=== PATIENT | male | born 1940 | race Caucasian/White ===

== ENCOUNTER → 2019-01-07 | Outpatient (CLI) | payer OTHER | END | disposition home or self-care (01) | LOC: SHCH 14:17 | PROVIDERS: ATTEND Internal Medicine Cardiovascular Disease | DX: I65.23 Occlusion and stenosis of bilateral carotid arteries (principal); I25.10 Atherosclerotic heart disease of native coronary artery without angina pectoris | CPT/HCPCS: 93880 ==

== ENCOUNTER 2019-04-12 19:44 | Inpatient (IN) | payer OTHER ==
[~2019-04-12] VITALS: Ht 170.2 cm; Wt 76.2 kg
[2019-04-12] MEDS ORDERED: SODIUM CHLORIDE 0.9% 1000ML 1,000 ML IV ONE (20:27)
[2019-04-12 20:30] LABS: BASOPHILS % (AUTO) 0.9 % (0.0-5.0); EOSINOPHILS % (AUTO) 1.7 % (0.0-8.0); LYMPHOCYTES % (AUTO) 18.5 % (21.0-51.0); MEAN CORPUSCULAR HEMOGLOBIN 31.2 pg (27.0-33.0); MEAN CORPUSCULAR HGB CONC 33.1 g/dL (32.0-36.0); MEAN CORPUSCULAR VOLUME 94.2 fL (79-99); MONOCYTES % (AUTO) 8.1 % (3.0-13.0); NEUTROPHILS % (AUTO) 70.8 % (40.0-77.0); PLATELET COUNT (AUTO) 249 K/uL (130-400); RED BLOOD CELL COUNT(AUTO) 2.87 MIL/uL (4.50-6.20); RED CELL DISTRIBUTION WIDTH 13.7 % (11.0-15.5); WHITE BLOOD COUNT (AUTO) 10.5 K/uL (4.8-10.8)
[2019-04-12 20:39] LABS: INR 1.06 (0.85-1.15); PARTIAL THROMBOPLASTIN TIME 27.8 SEC (26.3-35.5); PROTHROMBIN TIME 11.1 SEC (9.6-11.6)
[2019-04-12 20:40] LABS: CREATININE 1.6 mg/dL (0.5-1.5); POTASSIUM 4.4 mmol/L (3.5-5.1)
[2019-04-12] MEDS ORDERED: SODIUM CHLORIDE 0.9% 1000ML 1,000 ML IV SCH (22:20)
[2019-04-12] MEDS ORDERED: NITROGLYCERIN 0.4 MG SL TAB SL PRN (22:30)
[2019-04-12] MEDS ORDERED: ACETAMINOPHEN 325 MG TAB PO PRN ×2 (22:30)
[2019-04-12] MEDS ORDERED: ONDANSETRON HCL 4 MG/2 ML VIAL IV PRN (22:30)
[2019-04-12 22:32] LABS: APPEARANCE,URINE Clear (CLEAR); BILIRUBIN,URINE Negative (NEGATIVE); COLOR,URINE Yellow (YELLOW); GLUCOSE, URINE (UA) Negative (NEGATIVE); KETONES,URINE Negative (NEGATIVE); LEUKOCYTE ESTERASE ,URINE Negative (NEGATIVE); NITRATE,URINE Negative (NEGATIVE); OCCULT BLOOD,URINE Negative (NEGATIVE); PH,URINE 6.5 (5.0-8.0); PROTEIN,URINE Negative (NEGATIVE); UROBILINOGEN,URINE 0.2 mg/dL (0.2-1.0)
[2019-04-13] VITALS (7 sets, daily range): BP systolic 89–132; BP diastolic 38–60
[2019-04-13] MEDS ORDERED: SODIUM CHLORIDE 0.9% 1000ML 1,000 ML IV ONE (03:51)
[2019-04-13 04:17] LABS: HEMATOCRIT 23.1 % (42-54); MEAN CORPUSCULAR HEMOGLOBIN 32.2 pg (27.0-33.0); MEAN CORPUSCULAR HGB CONC 34.4 g/dL (32.0-36.0); MEAN CORPUSCULAR VOLUME 93.7 fL (79-99); PLATELET COUNT (AUTO) 217 K/uL (130-400); RED BLOOD CELL COUNT(AUTO) 2.46 MIL/uL (4.50-6.20); RED CELL DISTRIBUTION WIDTH 13.4 % (11.0-15.5); WHITE BLOOD COUNT (AUTO) 9.1 K/uL (4.8-10.8)
[2019-04-13 04:26] LABS: CARBON DIOXIDE 22 mmol/L (21-32); CHLORIDE 109 mmol/L (101-111); CREATININE 1.3 mg/dL (0.5-1.5); GLOMERULAR FILTR. RATE CALC 56 mL/min (>60); GLUCOSE,RANDOM 117 mg/dL (70-105); POTASSIUM 4.1 mmol/L (3.5-5.1); SODIUM SERUM 142 mmol/L (136-145); UREA NITROGEN, BLOOD 74 mg/dL (7-18)
[2019-04-13 04:36] LABS: ALANINE AMINOTRANSFERASE 16 U/L (12-78); ALBUMIN 3.3 g/dL (3.5-5.0); ASPARTATE AMINOTRANSFERASE 16 U/L (10-37); BASOPHILS % (MANUAL) 2 % (0-2); BILIRUBIN,TOTAL 0.3 mg/dL (0.2-1.0); CREATINE KINASE, TOTAL 51 U/L (21-232); LYMPHOCYTES % (MANUAL) 16 % (22-44); MAN.DIFF COMMENT-IMPRESSION MANUAL DIFFERENTIAL; MONOCYTES % (MANUAL) 8 % (2-9); MYOGLOBIN 59 ng/mL (10-92); PLATELET MORPHOLOGY COMMENT ADEQUATE; SEGMENTED NEUTROPHILS % 74 % (40-70); TOTAL PROTEIN, SERUM 6.1 g/dL (6.0-8.3); TROPONIN I < 0.04 ng/mL (0.00-0.06)
[2019-04-13] MEDS ORDERED: ACETAMINOPHEN 325 MG TAB ONE (06:36)
[2019-04-13] MEDS ORDERED: FAMOTIDINE 20MG TAB 20 MG TAB PO SCH (09:00)
[2019-04-13] MEDS ORDERED: FAMOTIDINE 20MG TAB 20 MG TAB ONE (10:10)
[2019-04-13] MEDS ORDERED: ERYTHROMYCIN LACTOBIONATE 250 MG in SODIUM CHLORIDE 0.9% 100 ML IV SCH (11:00)
[2019-04-13 12:24] LABS: HEMATOCRIT 19.9 % (42-54)
[2019-04-13 12:48] LABS: CREATINE KINASE, TOTAL 42 U/L (21-232); MYOGLOBIN 100 ng/mL (10-92); TROPONIN I < 0.04 ng/mL (0.00-0.06)
[2019-04-13] MEDS ORDERED: PROPOFOL 10 MG/ML 20ML VIAL IV ONE (12:55)
[2019-04-13] MEDS ORDERED: EPHEDRINE SULFATE 50 MG/ML AMPULE ONE (13:08)
[2019-04-13] MEDS ORDERED: SODIUM CHLORIDE 0.9% 250 ML IV ONE (15:50)
--- NOTE | 2019-04-13 19:26 | NUR ---
NOTE COMPLETED TRANSFUSION OF PBC'S. NOTIFIED PATIENT/SPOUSE THAT LAB CHECK WITH BE IN 1 HR FROM NOW. THEN WILL CONTACT HOSPITALS FOR FURTHER ORDERS.
[2019-04-13 21:20] LABS: HEMATOCRIT 23.9 % (42-54)
--- NOTE | 2019-04-13 21:32 | NUR ---
NOTE SPOUSE INQUIRING ABOUT NURSE PRACTITIONER. SHE WANT TO SPEAK WITH HIM. REQUESTED AND INFORMED, HE SAID WILL SPEAK TO THEM ONCE WE GET RESULT FROM H&H RECHECK. ALSO INQUIRED WHETHER ORDERS CAN BE PLACED AHEAD FOR ANOTHER UNIT OF BLOOD TO HAVE READY IN CASE HE NEEDS IT, EXPLAINED TO HER THAT IS NOT POSSIBLE AND WALKED AWAY BEFORE COMPLETE EXPLANATION THAT ORDERS ARE NEEDED AND THOSE WILL NOT COME UNTIL RESULTS OF CHECK COME IN.
--- NOTE | 2019-04-13 21:38 | NUR ---
NOTE HOSPITALIST Sandro AVELAR NOTIFIED OF RESULTS POSTED. HE REVIEWED THEM AND CAME TO SEE SPEAK TO PATIENT/SPOUSE. HE PLACED ORDERS FOR DISCHARGE HOME AND PRESCRIPTION FOR PROTONIX.
[2019-04-13] MEDS ORDERED: PANT40TA PO (21:39)
--- NOTE | 2019-04-13 22:32 | NUR ---
NOTE REVIEWED INFORMATION PACKET [facility] PATIENT. INSTRUCTIONS, MEDICATION, AND APPOINTMENTS TO BE MADE WITH DR. ADRIAN AND FOR HIM TO MAKE OR KEEP APPOINTMENT WITH DR. RODRIGUEZ (HIS PCP). REMOVED IV, BUSINESS PROCESS MANAGER. WAS TAKEN TO ENTRANCE IN WHEEL CHAIR BY HAND UPPER AND BOTTOM LACER. SPOUSE ACCOMPANIED.
== END 2019-04-13 22:32 | disposition home or self-care (01) | DRG 378 ==
LOC: EDH 19:44 → EDHIP 21:43 → 4AH 04-13 14:01
PROVIDERS: ADMIT Hospitalist; ATTEND Hospitalist
PROC: 0D568ZZ Destruction of Stomach, Via Natural or Artificial Opening Endoscopic (ICD-10-PCS; principal; 2019-04-13)
PROC: 30233N1 Transfusion of Nonautologous Red Blood Cells into Peripheral Vein, Percutaneous Approach (ICD-10-PCS; 2019-04-13)
DX: K29.01 Acute gastritis with bleeding (principal); D62 Acute posthemorrhagic anemia; K25.4 Chronic or unspecified gastric ulcer with hemorrhage; N18.9 Chronic kidney disease, unspecified; E78.00 Pure hypercholesterolemia, unspecified; E78.5 Hyperlipidemia, unspecified; I48.2 Chronic atrial fibrillation; K21.0 Gastro-esophageal reflux disease with esophagitis; Z79.01 Long term (current) use of anticoagulants; Z87.891 Personal history of nicotine dependence; Z82.49 Family history of ischemic heart disease and other diseases of the circulatory system; Z88.0 Allergy status to penicillin
CPT/HCPCS: 36415; 36430; 43270; 80048; 80053; 81003; 82270; 82550; 83874; 84484; 85014; 85018; 85025; 85610; 85730; 86677; 86850; 86900; 86901; 86922; 93005; G0378; J1364; J2704; J3490; J7030; P9016

== ENCOUNTER → 2019-07-10 | Outpatient (CLI) | payer OTHER ==
[~2019-07-10] MED LIST: PANT40TA PO
== END | disposition home or self-care (01) ==
LOC: RAH 07:52
PROVIDERS: ATTEND Internal Medicine
DX: N40.0 Benign prostatic hyperplasia without lower urinary tract symptoms (principal); N28.1 Cyst of kidney, acquired; N18.9 Chronic kidney disease, unspecified
CPT/HCPCS: 76770

== ENCOUNTER → 2020-02-12 | Outpatient (CLI) | payer OTHER | END | disposition home or self-care (01) | LOC: RAH 10:58 | PROVIDERS: ATTEND Internal Medicine | DX: R06.02 Shortness of breath (principal) | CPT/HCPCS: 71046 ==

== ENCOUNTER → 2020-11-08 | Outpatient (CLI) | payer OTHER ==
[~2020-11-08] MED LIST changes: +ATOR10 PO; +CARV3.12 PO
== END | disposition home or self-care (01) ==
LOC: RAH 11:46
PROVIDERS: ATTEND Internal Medicine
DX: S91.332A Puncture wound without foreign body, left foot, initial encounter (principal); X58.XXXA Exposure to other specified factors, initial encounter; Y93.89 Activity, other specified; Y92.89 Other specified places as the place of occurrence of the external cause; Y99.8 Other external cause status
CPT/HCPCS: 73630